=== PATIENT | female | born 1965 | race Caucasian/White ===

== ENCOUNTER 2017-03-10 20:47 | Emergency (ER) | payer MEDICAID ==
[~2017-03-10] VITALS: Ht 167.6 cm; Wt 83.0 kg
[2017-03-10 20:55] VITALS: Ht 167.6 cm; Wt 83.0 kg
[2017-03-11] MEDS ORDERED: SOD CHLORIDE 0.9% 1,000 ML IV STA (00:48)
[2017-03-11] MEDS ORDERED: FAMOTIDINE 20 MG TAB PO STA (00:48)
[2017-03-11] MEDS ORDERED: BELLADONNA/PHENOBARBITAL TAB PO STA (00:48)
[2017-03-11] MEDS ORDERED: LIDOCAINE/MYLANTA 40 ML BTL PO STA (00:48)
[2017-03-11] MEDS ORDERED: ONDANSETRON 4 MG INJ IV STA (00:48)
[2017-03-11] MEDS ORDERED: KETOROLAC 15 MG INJ IV STA (00:48)
--- NOTE | 2017-03-11 02:06 | ERD ---
ER Documentation Chief Complaint Chief Complaint RUQ abd pain x 2 days HPI 51-year-old woman complains of 3 days of constant epigastric pain and burning with right upper quadrant colicky pain radiating to the right upper back. Symptoms associated with multiple episodes of clear nonbloody nonbilious emesis and diarrhea. She has had no fevers or chills, no chest pain or shortness of breath, no headache or blurry vision. Patient denies dysuria, denies precipitating or alleviating factors. Patient denies recent antibiotic use or recent travel. ROS All systems reviewed and are negative except as per history of present illness. Medications Home Meds Active Scripts Hydrochlorothiazide* (Hydrochlorothiazide*) 25 Mg Tab, 25 MG PO DAILY, #30 TAB Prov:CHASE LORENZ MD 03/11/17 Mag Hydrox/Al Hydrox/Simeth (Maalox Advanced Suspension) 355 Ml Oral.susp, 2 TSP PO TID for PAIN, #24 OZ Prov:CHASE LORENZ MD 03/11/17 Ciprofloxacin Hcl* (Ciprofloxacin Hcl*) 500 Mg Tablet, 500 MG PO BID for 5 Days , TAB Prov:CHASE LORENZ MD 03/11/17 Ondansetron Hcl* (Zofran*) 4 Mg Tablet, 4 MG PO Q8H Y for NAUSEA AND/OR VOMITING , #12 TAB Prov:CHASE LORENZ MD 03/11/17 Oxycodone HCl/Acetaminophen (Percocet 5-325 mg Tablet) 1 Each Tablet, 1 EACH PO TID for PAIN, #12 TAB Prov:CHASE LORENZ MD 03/11/17 Reported Medications Multivitamins* (Theragran*) 1 Tab Tab, 1 TAB PO DAILY, TAB 03/11/17 Allergies Allergies: Coded Allergies: No Known Allergy (Unverified , 03/10/17) PMhx/Soc None Medical and Surgical Hx: pt denies Surgical Hx History of Surgery: No Anesthesia Reaction: No Hx Neurological Disorder: No Hx Respiratory Disorders: No Hx Cardiac Disorders: Yes (HTN) Hx Psychiatric Problems: No Hx Miscellaneous Medical Probl: No Hx Alcohol Use: No Hx Substance Use: No Hx Tobacco Use: No Smoking Status: Never smoker FmHx Family History: No diabetes Physical Exam Vitals Vital Signs Date Time Temp Pulse Resp B/P Pulse Ox O2 Delivery O2 Flow Rate FiO2 03/11/17 02:56 98.6 55 14 150/90 100 Room Air 03/11/17 02:29 98.7 52 180/99 100 Room Air 03/10/17 20:55 98.6 71 20 171/90 98 Physical Exam GENERAL: Well-developed, well-nourished, well-hydrated, mild discomfort, afebrile HEENT: Moist mucous membranes, pink conjunctiva, no cervical spine tenderness or step-off deformities, no goiter, no jaundice or icterus, extraocular movements intact without pain. No submandibular induration, and no pharyngeal erythema NEURO: Alert and oriented 3, cranial nerves II through XII intact bilaterally, pupils equal round reactive to light, no focal deficits or facial asymmetry, sensation intact distally Strength 5/5 in upper and lower extremities bilaterally CARDIAC: Regular rate and rhythm, no murmurs rubs or gallops LUNGS: Clear bilaterally no wheezing crackles or stridor ABDOMEN: Soft nontender, no guarding, no rigidity, no rebound, no psoas sign no obturator sign. Normoactive bowel sounds SKIN: Warm and dry to touch, no abrasions, contusions, or hematomas, no lacerations, no ecchymosis, no target lesions, and without ulcers EXTREMITIES: No clubbing cyanosis or edema, calves are bilaterally symmetrical, no Homans sign, no popliteal cord sign. Distal pulses equal and bilateral PSYCH: Normal affect without agitation or irritability Result Diagram: 03/11/179903/11/1799 Results 24 hrs Laboratory Tests Test 03/11/17 01:00 White Blood Count 7.710^3/ul Red Blood Count 4.1410^6/ul Hemoglobin 13.3g/dl Hematocrit 39.6% Mean Corpuscular Volume 95.7fl Mean Corpuscular Hemoglobin 32.1pg Mean Corpuscular Hemoglobin Concent 33.6g/dl Red Cell Distribution Width 13.1% Platelet Count 49773^3/UL Mean Platelet Volume 10.1fl Neutrophils % 39.5% Lymphocytes % 50.1% Monocytes % 6.4% Eosinophils % 3.0% Basophils % 0.7% Nucleated Red Blood Cells % 0.0/100WBC Neutrophils # 3.010^3/ul Lymphocytes # 3.810^3/ul Monocytes # 0.510^3/ul Eosinophils # 0.210^3/ul Basophils # 0.110^3/ul Nucleated Red Blood Cells # 0.010^3/ul Prothrombin Time 11.7Sec Prothrombin Time Ratio 0.9 INR International Normalized Ratio 0.86 Urine Color YELLOW Urine Clarity CLEAR Urine pH 5.0 Urine Specific [place] 1.023 Urine Ketones NEGATIVEmg/dL Urine Nitrite NEGATIVEmg/dL Urine Bilirubin NEGATIVEmg/dL Urine Urobilinogen NEGATIVEmg/dL Urine Leukocyte Esterase NEGATIVELeu/ul Urine Microscopic RBC 12/HPF Urine Microscopic WBC 1/HPF Urine Mucus FEW/HPF Urine Hemoglobin 2+mg/dL Urine Glucose NEGATIVEmg/dL Urine Total Protein NEGATIVEmg/dl Sodium Level 143mmol/L Potassium Level 3.8mmol/L Chloride Level 108mmol/L Carbon Dioxide Level 24mmol/L Anion Gap 15 Blood Urea Nitrogen 17mg/dl Creatinine 0.86mg/dl Glucose Level 101mg/dl Calcium Level 9.0mg/dl Total Bilirubin 0.5mg/dl Direct Bilirubin 0.00mg/dl Indirect Bilirubin 0.5mg/dl Aspartate Amino Transf (AST/SGOT) 26IU/L Alanine Aminotransferase (ALT/SGPT) 26IU/L Alkaline Phosphatase 85IU/L Total Protein 7.5g/dl Albumin 4.6g/dl Globulin 2.90g/dl Albumin/Globulin Ratio 1.58 Lipase 77U/L Current Medications Medications (Trade) Dose Ordered Sig/Jannet Route PRN Reason Start Time Stop Time Status Last Admin Dose Admin Sodium Chloride (NS) 1,000 ml @ 1,000 mls/hr Q1H STAT IV 03/11/17 00:48 03/11/17 01:47 DC 03/11/17 01:48 Ondansetron HCl (Zofran Inj) 4 mg ONCE STAT IV 03/11/17 00:48 03/11/17 00:50 DC 03/11/17 01:55 Famotidine (Pepcid) 40 mg ONCE STAT PO 03/11/17 00:48 03/11/17 00:50 DC 03/11/17 02:00 Miscellaneous Medication (Gi Cocktail (2)) 40 ml ONCE STAT PO 03/11/17 00:48 03/11/17 00:50 OR 03/11/17 02:05 Belladonna/ Phenobarbital () 2 tab ONCE STAT PO 03/11/17 00:48 03/11/17 00:50 DC 03/11/17 01:45 Ketorolac Tromethamine (Toradol) 15 mg ONCE STAT IV 03/11/17 00:48 03/11/17 00:50 DC 03/11/17 01:55 Clonidine (Catapres) 0.1 mg ONCE ONCE PO 03/11/17 01:00 03/11/17 01:01 DC 03/11/17 01:50 Procedures/MDM IV line was established patient was placed on awake overnight monitor rhythm strip revealed a sinus rhythm at about 80 bpm with upright P and T waves. Patient was afebrile I administered 1 L normal saline intravenously, Toradol 15 mg IV, Zofran 4 mg IV , GI cocktail 30 cc p.o., famotidine 40 mg p.o. with good effect. Patient was also hypertensive and received clonidine 0.1 mg p.o. here in the ED , BP improved. Abdominal ultrasound was performed revealing a right ureter calculus and no evidence of acute cholecystitis. CBC and electrolytes are normal, liver function tests were normal, urinalysis negative for infection. Patient's blood pressure improved. Differential diagnoses considered, included but not limited to acute coronary syndrome, pulmonary embolism, aortic dissection, abdominal aortic aneurysm, sepsis, stroke, meningitis, encephalitis, pneumonia, appendicitis, cholecystitis , bowel obstruction, pyelonephritis, nephrolithiasis, cystitis, as well as metabolic, hematologic, and electrolyte abnormalities. As well as abscess, cellulitis, fractures, and dislocations. Patient feels much better at this time, and vital signs are normal, symptoms have improved. I did give strict instructions to return to the ED if symptoms continue or worsen, patient will otherwise follow-up with primary care physician. Patient understood instructions and agreed to plan. Disclaimer: Inadvertent spelling and grammatical errors are likely due to EHR/ dictation software use and do not reflect on the overall quality of patient care. Also, please note that the electronic time recorded on this note does not necessarily reflect the actual time of the patient encounter. Departure Diagnosis: Primary Impression: Vomiting and diarrhea Additional Impressions: Ureter, calculus Hypertension Hypertension type: essential hypertension Qualified Code: I10 - Essential hypertension Condition: Good CHASE LORENZ MD Mar 11, 2017 02:06
[2017-03-11] MEDS ORDERED: MAG355OR14 PO (02:30)
[2017-03-11] MEDS ORDERED: ONDA4TAB8 PO (02:30)
[2017-03-11] MEDS ORDERED: OXYC-279 PO (02:30)
[2017-03-11] MEDS ORDERED: CIPR500T4 PO (02:30)
--- NOTE | 2017-03-11 02:33 | RADRPT ---
PROCEDURE: US abdomen limited right upper quadrant. CLINICAL INDICATION: Abdominal pain rule out cholecystitis TECHNIQUE: Multiple real-time images were acquired of the patient's right upper quadrant of the [facility] utilizing a high resolution transducer. COMPARISON: None FINDINGS: Study is suboptimal due to patient body habitus. No gallstones are identified within the gallbladder . There is no pericholecystic fluid or gallbladder wall thickening. The common bile duct measures 5.8 mm in maximal dimension. No free fluid is identified. No abnormality is seen in the pancreatic head or body. The pancreatic t ail is obscured by bowel gas. There is appearance of a 1.5 x 1.5 cm cyst in the right lobe of the li ivelisse. The right kidney measures 9.8 cm in length. No definite abnormality of the right kidney seen. IMPRESSION: Suboptimal study due to patient body habitus. Pancreatic tail not seen. Appearance of 1.5 cm cyst in right lobe of liver. No evidence of acute cholecystitis seen. Please see above. RPTAT: HJES .Bony Turner MD, MD Date Time Electronically viewed and signed by .Bony Turner MD, on 03/11/2017 02:33 .S/
[2017-03-11] MEDS ORDERED: MULTI PO (02:42)
[2017-03-11] MEDS ORDERED: HYDR25TA6 PO (02:47)
[2017-03-11 02:56] VITALS: BP 150/90; PULSE 55; RESP 14; TEMP 98.6
== END 2017-03-11 02:58 | disposition home or self-care (01) ==
LOC: E/R 20:47
DX: R11.10 Vomiting, unspecified (principal); R19.7 Diarrhea, unspecified; N20.1 Calculus of ureter; I10 Essential (primary) hypertension
CPT/HCPCS: 36415; 76705; 80053; 81001; 83690; 85025; 85610; 96374; 96375; J1885; J2405; J7030; Z7502; Z7610